=== PATIENT | female | born 2005 | race Caucasian/White ===

== ENCOUNTER 2023-08-25 10:35 | Outpatient (OUT) | payer MEDICAID, SELFPAY ==
--- NOTE | 2023-08-25 10:49 | MM_ITS ---
Patient Name: HOA AGRCIA MR#: [id number] : 2005 Exam Date: 08/25/2023 Ordering Doctor: DR Jignesh Ivy . RADIOLOGY REPORT PROCEDURE: MM TOMOSYNTHESIS DIAGNOSTIC BI, 08/25/2023, 11:40 US BREAST LT COMPLETE, 08/25/2023, 11:00 COMPARISON: None. INDICATIONS: Left Breast Mass N63.20 Calculator Name NCI Breast Cancer Risk Assessment Tool 5 Year Breast Cancer Risk Not Reported. Lifetime Breast Cancer Risk Not Reported. Personal Breast Cancer No Personal Ovarian Cancer No Treatments None Family Cancers None LOCATION: [facility] BREAST COMPOSITION: Extremely dense, which lowers the sensitivity of mammography. FINDINGS: DIAGNOSTIC CATEGORY 4--SUSPICIOUS FOR MALIGNANCY. FINDING DOES NOT EXHIBIT CLASSIC FINDINGS OF BREAST CANCER: RIGHT BREAST: Partially circumscribed nodule within upper-outer quadrant corresponding to patient's palpable lump. Evaluation is limited by dense parenchyma. Ultrasound evaluation demonstrates several heterogeneous hypoechoic well-circumscribed nodules at the 11 o'clock, 12 o'clock, and 1 o'clock positions; largest is at 12 o'clock, 1.4 x 1.2 x 1.0 cm. LEFT BREAST: Partially circumscribed nodules within upper-outer quadrant corresponding to patient's palpable lump. Evaluation is limited by dense parenchyma. Ultrasound evaluation demonstrates heterogeneous nodules which well-circumscribed and hypoechoic at the 12 o'clock position, largest is 2.0 x 2.0 x 1.2 cm. Patient's age and multiplicity of the similar appearing nodules favors benign etiology such as fibroadenomas. Ultrasound-guided tissue sampling could be performed of the largest nodule for confirmation if clinically indicated. RECOMMENDATIONS: ULTRASOUND-GUIDED CORE BIOPSY: LEFT BREAST PLEASE NOTE: A NORMAL MAMMOGRAM DOES NOT EXCLUDE THE POSSIBILITY OF BREAST CANCER. A CLINICALLY SUSPICIOUS PALPABLE LUMP SHOULD BE BIOPSIED. Dictated by: Pako Page M.D. on 08/25/2023 at 11:59 Approved by: Pako Page M.D. on 08/25/2023 at 12:27
== END 2023-08-25 10:36 | disposition home or self-care (01) ==
PROVIDERS: PCP Family Medicine; Visit Provider Obstetrics & Gynecology
DX: N63.21 Unspecified lump in the left breast, upper outer quadrant (principal); N63.25 Unspecified lump in the left breast, overlapping quadrants
CPT/HCPCS: 76641; 77066; G0279

== ENCOUNTER 2023-09-17 10:57 | Day surgery (SDC) | payer MEDICAID, SELFPAY ==
--- NOTE | 2023-09-17 11:06 | US_ITS ---
[address] [address] Patient Name: HOA GARCIA MRN: [id number] date: 2005 Sex: F Assigned Patient Location: US Current Patient Location: US Accession/Order Number: [id number] Exam Date: 09/17/2023 11:10 Report Date: 09/17/2023 12:39 At the request of: EDGARDO CASTREJON Procedure: US breast vac bx w/ clip LT EXAMINATION: US breast vac bx w/ clip LT HISTORY: Left Breast Mass COMPARISON: No relevant comparison available. TECHNIQUE: After obtaining informed consent, ultrasound-guided fine needle aspiration was performed in the usual sterile manner. FINDINGS: IMAGING: Ultrasound. BIOPSY NEEDLE: Mammotome vacuum assisted LOCATION: 12:00 left breast 2.2 cm oval mass SPECIMEN TYPE: 4 core samples. LOCAL ANESTHETIC: 2 cc 1% buffered lidocaine subcutaneous, 6 cc 1% buffered lidocaine with epinephrine deep COMPLICATIONS: None. LABORATORY: Prepared slide smears and washings for cell block evaluation. OTHER: Microclip marker successfully placed within the mass. PATHOLOGY: Pending. An addendum will be added when results are available. US/US breast vac bx w/ clip LT IMPRESSION: 1. Uneventful ultrasound guided left breast core biopsy 2. Pathology results are pending. Electronically authenticated by: TERRY TORRES Date: 09/17/2023 12:39
--- NOTE | 2023-09-17 11:07 | MM_ITS ---
Patient Name: HOA GARCIA MR#: [id number] : 2005 Exam Date: 09/17/2023 Ordering Doctor: DR Jignesh Ivy . This report includes an Addendum and supersedes previous reports for this exam. RADIOLOGY REPORT PROCEDURE: MM POST BIOPSY LT COMPARISON: MM TOMOSYNTHESIS DIAGNOSTIC BI, 08/25/2023. INDICATIONS: Left Breast Mass BREAST COMPOSITION: Extremely dense, which lowers the sensitivity of mammography. FINDINGS: BIOPSY MARKER: A metallic marker has been placed in the targeted location within the upper outer quadrant, mid left breast BREAST FINDINGS: Postprocedural subcutaneous air Dictated by: Gilberto Forrest MD on 09/17/2023 at 12:43 Approved by: Gilberto Forrest MD on 09/17/2023 at 12:43 ADDENDUM: FINDINGS: DIAGNOSTIC CATEGORY 2--BENIGN FINDING: Final diagnosis: Fibroepithelial lesion, favor cellular fibroadenoma. No further evaluation is required. RECOMMENDATIONS: CLINICAL EVALUATION. Dictated by: Gilberto Forrest MD on 10/23/2023 at 08:41 Approved by: Gilberto Forrest MD on 10/23/2023 at 08:42
[2023-09-17 11:10] VITALS: BP 111/73; PULSE 80; O2SAT 100
[2023-09-17] MEDS: LIDOCAINE HCL/EPINEPHRINE 10 ML, SODIUM BICARBONATE 1 MEQ INJ (11:45)
[2023-09-17] MEDS: LIDOCAINE HCL 10 ML, SODIUM BICARBONATE 1 MEQ INJ (11:45)
--- NOTE | 2023-09-17 14:18 | SUR.PREOP ---
09/11/23 Instructed pt on date, time, prep, and procedure.
== END 2023-09-17 12:10 | disposition home or self-care (01) ==
LOC: US 10:58
PROVIDERS: Radiology Diagnostic Radiology; PCP Family Medicine; Visit Provider Obstetrics & Gynecology
DX: D24.2 Benign neoplasm of left breast (principal)
CPT/HCPCS: 19083; 77065; 88305

== ENCOUNTER 2024-06-28 13:14 | Outpatient (OUT) | payer MEDICAID, SELFPAY ==
--- NOTE | 2024-06-28 | US_ITS ---
Patient Name: HOA GARCIA MR#: [id number] : 2005 Exam Date: 06/28/2024 Ordering Doctor: VIKTORIYA Walker . CORRECTION Corrected on: 07/01/2024; RADIOLOGY REPORT PROCEDURE: MM TOMOSYNTHESIS DIAGNOSTIC LT, 06/28/2024, 13:23 US BREAST LT LIMITED, 06/28/2024, 13:54 COMPARISON: MM POST BIOPSY LT, 09/17/2023. INDICATIONS: SCREENING Calculator Name NCI Breast Cancer Risk Assessment Tool 5 Year Breast Cancer Risk Not Reported. Lifetime Breast Cancer Risk Not Reported. Personal Breast Cancer No Personal Ovarian Cancer No Treatments None Family Cancers None LOCATION: [facility] BREAST COMPOSITION: The breasts are extremely dense, which lowers the sensitivity of mammography. FINDINGS: DIAGNOSTIC CATEGORY 4--SUSPICIOUS FOR MALIGNANCY. FINDING DOES NOT EXHIBIT CLASSIC FINDINGS OF BREAST CANCER: This exam includes additional mammographic views for implant evaluation and shows no visible implant abnormality. The left breast is stable in overall size however there are 2 focal mass lesions significantly increased in size from the prior exam measuring 5.4 x 4.7 x 5.1 cm along the 12 o'clock position of the left breast and 5.0 x 3.1 cm in the axillary tail seen on the MLO projection only. Ultrasound demonstrates 2 focal lesions at the 12 o'clock position measuring 4.8 x 2.2 x 3.0 cm and in a retroareolar location measuring 4.2 x 4.8 x 2.7 cm. Both lesions are oval in shape heterogeneous in echotexture with vascular flow. One of these lesions was biopsied in September of 2023. However given multiplicity and rapid increase in size, surgical consultation is recommended to exclude malignant transformation. RECOMMENDATIONS: SURGICAL BIOPSY: LEFT BREAST PLEASE NOTE: A NORMAL MAMMOGRAM DOES NOT EXCLUDE THE POSSIBILITY OF BREAST CANCER. A CLINICALLY SUSPICIOUS PALPABLE LUMP SHOULD BE BIOPSIED. Dictated by: Gilberto Forrest MD on 06/28/2024 at 14:14 Approved by: Gilberto Forrest MD on 06/28/2024 at 14:19 Dictated by: Gilberto Forrest MD on 07/01/2024 at 13:20 Approved by: Gilberto Forrest MD on 07/01/2024 at 13:20
== END 2024-06-28 13:15 | disposition home or self-care (01) ==
LOC: MAMMO 13:14
PROVIDERS: PCP Family Medicine; Visit Provider Physician Assistant
DX: N63.22 Unspecified lump in the left breast, upper inner quadrant (principal); N63.25 Unspecified lump in the left breast, overlapping quadrants; Z80.3 Family history of malignant neoplasm of breast
CPT/HCPCS: 76642; 77065; G0279

== ENCOUNTER 2024-07-19 13:10 | Outpatient (OUT) | payer MEDICAID, SELFPAY ==
--- NOTE | 2024-07-19 | US_ITS ---
Patient Name: HOA GARCIA MR#: [id number] : 2005 Exam Date: 07/19/2024 Ordering Doctor: VIKTORIYA Walker . RADIOLOGY REPORT PROCEDURE: MM TOMOSYNTHESIS DIAGNOSTIC RT, 07/19/2024, 13:12 US BREAST RT LIMITED, 07/19/2024, 13:33 COMPARISON: MM TOMOSYNTHESIS DIAGNOSTIC LT, 06/28/2024. MM POST BIOPSY LT, 09/17/2023. MM TOMOSYNTHESIS DIAGNOSTIC BI, 08/25/2023. INDICATIONS: Mass Of Right Breast N63.10; history of multiple fibroadenomas Calculator Name NCI Breast Cancer Risk Assessment Tool 5 Year Breast Cancer Risk Not Reported. Lifetime Breast Cancer Risk Not Reported. Personal Breast Cancer No Personal Ovarian Cancer No Treatments None Family Cancers None LOCATION: [facility] BREAST COMPOSITION: The breasts are extremely dense, which lowers the sensitivity of mammography. FINDINGS: DIAGNOSTIC CATEGORY 2--BENIGN FINDING: RIGHT BREAST: Very dense breast tissue with several partially circumscribed nodules scattered within the breast; 2 of these correspond to patient's palpable lumps as marked by the skin surface markers. Unremarkable breast implant. ULTRASOUND: Approximately 5 separate hypoechoic slightly heterogeneous well-circumscribed nodules scattered within the breast; a 1.8 cm mass at the 1 o'clock position corresponds to 1 of the patient's palpable lumps. A 2.6 cm bilobed mass versus 2 adjacent masses at the 10 o'clock position corresponds to the patient's other palpable area. All lesions are similar in appearance and would be compatible with history of fibroadenomas. Ultrasound-guided tissue sampling could be performed if needed. Otherwise continue with ongoing surgical evaluation. RECOMMENDATIONS: CLINICAL EVALUATION. SURGICAL CONSULTATION. PLEASE NOTE: A NORMAL MAMMOGRAM DOES NOT EXCLUDE THE POSSIBILITY OF BREAST CANCER. A CLINICALLY SUSPICIOUS PALPABLE LUMP SHOULD BE BIOPSIED. Dictated by: Pako Page M.D. on 07/19/2024 at 13:56 Approved by: Pako Page M.D. on 07/19/2024 at 14:06
--- NOTE | 2024-07-19 13:14 | MM_ITS ---
Patient Name: HOA GARCIA MR#: [id number] : 2005 Exam Date: 07/19/2024 Ordering Doctor: VIKTORIYA Walker . RADIOLOGY REPORT PROCEDURE: MM TOMOSYNTHESIS DIAGNOSTIC RT, 07/19/2024, 13:12 US BREAST RT LIMITED, 07/19/2024, 13:33 COMPARISON: MM TOMOSYNTHESIS DIAGNOSTIC LT, 06/28/2024. MM POST BIOPSY LT, 09/17/2023. MM TOMOSYNTHESIS DIAGNOSTIC BI, 08/25/2023. INDICATIONS: Mass Of Right Breast N63.10; history of multiple fibroadenomas Calculator Name NCI Breast Cancer Risk Assessment Tool 5 Year Breast Cancer Risk Not Reported. Lifetime Breast Cancer Risk Not Reported. Personal Breast Cancer No Personal Ovarian Cancer No Treatments None Family Cancers None LOCATION: [facility] BREAST COMPOSITION: The breasts are extremely dense, which lowers the sensitivity of mammography. FINDINGS: DIAGNOSTIC CATEGORY 2--BENIGN FINDING: RIGHT BREAST: Very dense breast tissue with several partially circumscribed nodules scattered within the breast; 2 of these correspond to patient's palpable lumps as marked by the skin surface markers. Unremarkable breast implant. ULTRASOUND: Approximately 5 separate hypoechoic slightly heterogeneous well-circumscribed nodules scattered within the breast; a 1.8 cm mass at the 1 o'clock position corresponds to 1 of the patient's palpable lumps. A 2.6 cm bilobed mass versus 2 adjacent masses at the 10 o'clock position corresponds to the patient's other palpable area. All lesions are similar in appearance and would be compatible with history of fibroadenomas. Ultrasound-guided tissue sampling could be performed if needed. Otherwise continue with ongoing surgical evaluation. RECOMMENDATIONS: CLINICAL EVALUATION. SURGICAL CONSULTATION. PLEASE NOTE: A NORMAL MAMMOGRAM DOES NOT EXCLUDE THE POSSIBILITY OF BREAST CANCER. A CLINICALLY SUSPICIOUS PALPABLE LUMP SHOULD BE BIOPSIED. Dictated by: Pako Page M.D. on 07/19/2024 at 13:56 Approved by: Pako Page M.D. on 07/19/2024 at 14:06
--- OUTSIDE RECORDS SUMMARY | 2024-07-19 13:22 | XMS_ITS | CCD ---
Author Organization [facility] Care Team Providers Care Plant Science Professor Name Role Phone Mana Mancuso Primary Care Provider [phone] Quoc Cordova Unavailable Sumaya Healy Primary Care Provider Ruddy Campbell Primary Care Provider Ruddy Campbell Primary Care Provider Sumaya Healy CNP Primary Care Provider RUDDY CAMPBELL Primary Care Unavailable JOSE J OLIVEROS Attending Unavailable CARLOS, DR RUDDY Morillo Primary Care Unavailable NARINDER NEWBERRY Attending Unavailable NARINDER NEWBERRY Consulting Unavailable NARINDER NEWBERRY Admitting Unavailable VIKTORIYA TANNER Consulting Unavailable CARLOS, DR RUDDY Morillo Primary Care Unavailable NARINDER NEWBERRY Admitting Unavailable NARINDER NEWBERRY Attending Unavailable Nereida Vuong Consulting Unavailable KARBRITTANY, DR KNAPP Attending Unavailable KARASIJosette, DR KNAPP Admitting Unavailable KARASIK, DR KNAPP Consulting Unavailable CARLOS, DR RUDDY Morillo Primary Care Unavailable KARASIJosette, DR KNAPP Attending Unavailable KARASIJosette, DR KNAPP Consulting Unavailable JOHNATHAN, DR KNAPP Admitting Unavailable CARLOS, DR RUDDY Morillo Primary Care Unavailable KARDARRENK, DR KNAPP Attending Unavailable KARBRITTANY, DR KNAPP Consulting Unavailable JOHNATHAN, DR KNAPP Admitting Unavailable CARLOS, DR RUDDY Morillo Primary Care Unavailable KARBRITTANY, DR KNAPP Attending Unavailable CARLOS, DR RUDDY Morillo Primary Care Unavailable KARASIK, DR KNAPP Consulting Unavailable KARDARRENK, DR KNAPP Admitting Unavailable DESAI, DR WHITE Consulting Unavailable TAMANNA, DR MUNOZ Admitting Unavailable CARLOS, DR RUDDY Morillo Primary Care Unavailable TAMANNA, DR MUNOZ Attending Unavailable KYAW Ortiz Attending Provider Unavail able Sophie Ortiz Attending Unavailable Sophie Ortiz Admitting Unavailable Sophie Ortiz Unavailable CAROLE TANNER Attending Unavailable Biju DO, Jignesh R Primary Care Provider BIJU, JIGNESH R Referring Unavailable BIJU, JIGNESH R Primary Care Unavailable BIJU, JIGNESH R Referring Unavailable BIJU, JIGNESH R Primary Care Unavailable BIJU, JIGNESH R Referring Unavailable BIJU, JIGNESH R Primary Care Unavailable BIJU, JIGNESH R Referring Unavailable BIJU, JIGNESH R Primary Care Unavailable BIJU, JIGNESH R Referring Unavailable BIJU, JIGNESH R Primary Care Unavailable BIJU, JIGNESH R Referring Unavailable BIJU, JIGNESH R Primary Care Unavailable BIJU, JIGNESH R Referring Unavailable BIJU, JIGNESH R Primary Care Unavailable ROBBI CHARLES Attending Unavailable BIJU, JIGNESH R Referring Unavailable BIJU, JIGNESH R Primary Care Unavailable Nilda Robledo Attending Unavailable Biju, Jignesh Referring Unavailable Medications Current Medications Medication Drug Class(es) Dates Sig (Normalized) Sig (Original) ascorbic acid 500 mg oral tablet (3 sources) Vitamin C Start: 06-19-2020 End: 08-14-2020 Ascorbic Acid 500 MG Oral Tablet 08/14/2020 Provider: Sumaya Healy PRACTICE ADMINISTRATOR {7 (ethinyl estradiol 0.025 MG / norgestimate 0.18 MG Oral Tablet) / 7 (ethinyl estradiol 0.025 MG / norgestimate 0.215 MG Oral Tablet) / 7 (ethinyl estradiol 0.025 MG / norgestimate 0.25 MG Oral Tablet) / 7 (inert ingredients 1 MG Oral Tablet) } Pack [Gos-Yz-Ahadvgaq 28 Day] (8 sources) Progestin, Estrogen Start: 05-23-2020 Pcx-Hn-Cnwpbdti 0.18/0.215/0.25 MG-25 MCG Oral Tablet 05/23/2020 Provider: Start: 08-27-2019 End: 12-02-2023 SPRINTEC, 28, 0.25-35 mg-mcg per tablet take 1 tablet by shankar th once daily norgestimate-ethinyl estradiol (SPRINTEC 28) 0.25-35 MG-MCG per tablet Take 1 tablet by mouth daily 0 Active Completed/Discontinued Medications Medication Drug Class(es) Dates Sig (Normalized) Sig (Original) amoxicillin 500 mg oral capsule (5 sources) Penicillin-class Antibacterial Start: 05-23-2020 End: 05-29-2020 Amoxicillin 500 MG Oral Capsule 05/23/2020 - 05/29/2020 Provider: ferrous sulfate 325 mg oral tablet (7 sources) Start: 06-19-2020 End: 03-01-2021 Ferrous Sulfate 325 (65 Fe) MG Oral Tablet 08/14/2020 - 11/23/2020 Provider: Sumaya Healy PRACTICE ADMINISTRATOR Problems Active Problems Problem Classification Problem Date Documented Date Episodic/Chronic Bacterial infection; unspecified site (4 sources) Chlamydial infection, unspecified; Translations: [CHLAMYDIAL INFECTION UNSPECIFIED] Onset: 01-07-2022 Episodic Genitourinary symptoms and ill-defined conditions (1 source) Dysuria Episodic Malaise and fatigue (2 sources) Fatigue; Translations: [Fatigue] Onset: 06-08-2020 Episodic Nonmalignant breast conditions (1 source) Unspecified lump in unspecified breast; Translations: [Unspecified lump in unspecified breast] Onset: 07-13-2024 Episodic Other and unspecified benign neoplasm (1 source) Fibroadenoma of left breast; Translations: [Benign neoplasm of left breast] 12-02-2023 Episodic Other and unspecified benign neoplasm (2 sources) Benign neoplasm of left breast; Translations: [Benign neoplasm of left breast] Onset: 12-02-2023 Episodic Other and unspecified benign neoplasm (1 source) Benign neoplasm of right breast; Translations: [Benign neoplasm of right breast] Onset: 07-13-2024 Episodic Other connective tissue disease (3 sources) Pain in left upper arm; Translations: [PAIN IN LEFT UPPER ARM] Onset: 01-20-2022 Episodic Other connective tissue disease (1 source) Pain in left arm; Translations: [PAIN IN LEFT ARM] Onset: 01-21-2022 Episodic Other connective tissue disease (1 source) Myalgia, unspecified site; Translations: [MYALGIA UNSPECIFIED SITE] Onset: 01-21-2022 Episodic Other female genital disorders (5 sources) Other specified noninflammatory disorders of vagina; Translations: [OTH SPEC NONINFLAMMATORY D/O VAGINA] Onset: 08-01-2021 Episodic Other upper respiratory infections (1 source) Viral upper respiratory tract infection; Translations: [Acute upper respiratory infection, unspecified] Episodic Otitis media and related conditions (2 sources) Perforation of left tympanic membrane; Translations: [Perforated eardrum, left] Onset: 07-13-2020 07-13-2020 Residual codes; unclassified (6 sources) Body mass index (BMI) pediatric, 5th percentile to less than 85th percentile for age; Translations: [Assessment of Bmi Percentile = 5% To < 85% For Age Z68.52] Onset: 05-23-2020 Episodic Residual codes; unclassified (2 sources) High risk heterosexual behavior; Translations: [High risk heterosexual behavior] Onset: 11-24-2022 Episodic Residual codes; unclassified (1 source) Pain, unspecified; Translations: [Pain, unspecified] Onset: 11-11-2023 Episodic Unclassified (1 source) CONTACT W/AND (SUSP) EXPOS COVID-19; Translations: [CONTACT W/AND (SUSP) EXPOS COVID-19] Onset: 03-13-2021 Unclassified (1 source) Breast Mass Onset: 12-02-2023 Past or Other Problems Problem Classification Problem Date Documented Da te Episodic/Chronic Conditions associated with dizziness or vertigo (1 source) Dizziness and giddiness; Translations: [DIZZINESS AND GIDDINESS] Onset: 03-13-2021 Episodic Immunizations and screening for infectious disease (4 sources) Encounter for screening for infections with a predominantly sexual mode of transmission; Translations: [ENC SCREEN INFECTIONS SEXL TRANSMS] Onset: 07-24-2021 Episodic Nausea and vomiting (1 source) Nausea with vomiting, unspecified; Translations: [NAUSEA WITH VOMITING UNSPECIFIED] Onset: 03-13-2021 Episodic Other gastrointestinal disorders (4 sources) Diarrhea, unspecified; Translations: [DIARRHEA UNSPECIFIED] Onset: 03-10-2021 Episodic Other skin disorders (3 sources) Rash and other nonspecific skin eruption; Translations: [RASH OTH NONSPECIFIC SKIN ERUPTION] Onset: 08-11-2021 Episodic Other upper respiratory disease (5 sources) Bleeding from nose; Translations: [Epistaxis] Onset: 06-11-2020 Episodic Otitis media and related conditions (1 source) Perforation of left tympanic membrane; Translations: [Unspecified perforation of tympanic membrane, left ear] Onset: 07-13-2020 07-13-2020 Episodic Skin and subcutaneous tissue infections (1 source) Impetigo, unspecified; Translations: [IMPETIGO UNSPECIFIED] Onset: 08-13-2021 Episodic Superficial injury; contusion (3 sources) Contusion of face; Translations: [Contusion of other part of head, initial encounter] Onset: 07-13-2020 07-13-2020 Episodic Results Test Name Value Interpretation Reference Range Facility Plastic Surgery Visit Report on 07-05-2024 Plastic Surgery Visit Report [facility] Plastic Reconstructive Surgery [address], [address] [place] [address] OFFICE VISIT Date of Service: 07/05/24 MR#: [id number] Acct: [id number] Name: HOA GARCIA Rep #: [id number] : 2005 Provider: Dr. Nilda vera MD Age/Sex: 19/F Location: [facility] Status: Signed Intake Vital Signs 07/05/24 14:04 Height 5 ft 3 in Weight: 126 lb BMI 22.3 BP 116/73 Blood Pressure Location Rt brachial Position Sitting Respiration 18 Pulse 62 Pulse Source Monitor Temp 97.7 F L Temp Source Oral Pulse Oximetry (%) 95 Oxygen Delivery Method room air Intake Visit Reasons: LUMP ON L BREAST Chief Complaint: lump on L breast Allergies No Known Allergies Allergy (Verified 07/05/24 14:04) Medications ???Medication ???Instructions ???Recorded ???Confirmed ???Type NK 07/05/24 07/05/24 History Nurse's Note: 2 lumps on L breast, 1 lump on right breast. [facility] Medical History (Updated 07/05/24 @ 15:[address] Nilda Robledo MD) Breast tumor Surgical History (Updated 07/05/24 @ 14:01 by Sara Avalos) History of breast implant History of breast lump removal Family History (Updated 07/05/24 @ 14:08 by Sara Avalos) Aunt Breast cancer Grandmother Breast cancer Father Alcoholism Mother Alcoholism Grandfather Alcoholism Grandmother Alcoholism Social History (Updated 07/05/24 @ 14:07 by Sara Avalos) Smoking Status: Never smoker alcohol intake: current substance use type: does not use additional social history: no ibuprofen or asa, no vaping, no edibles, no marijuana HPI LUMP ON L BREAST Details: Hoa is a 19-year-old female patient who presents for evaluation of several breast masses. She had a breast mass on the right side biopsied several years ago which was consistent with a fibroadenoma. She has masses on her left side which have been there for quite a while but have increased in size. An ultrasound and mammogram done on 06/28/2024 demonstrates 2 focal masses on the left side measuring 5.4 cm in the 12 o'clock position and 5.0 cm in the axillary tail. She states that she has deve loped several of these masses over the last few years. She states that she had had a removal on the right side in the past and was disappointed in the resulting scar on her upper right breast. She does not want to return to the surgeon. Several months ago, she flew to [facility] to have breast augmentation done by Dr. Heladio Rosado ( the highest rated plastic surgeon for breast augmentation ). She states she has bilateral silicone implants in place. She states that he had offered to remove 1 of these masses at that time and she declined. ROS General General: Yes good health; No fatigue, fever(s) or weight loss HENMT HENMT: No rhinitis, sore throat/mouth sore, nasal congestion, contacts or glaucoma Endo Endocrine: No thyroid disease, polydipsia, heat intolerance, cold intolerance, hepatitis or excessive urine Skin Skin: No Bleeding, bruising, changing moles or suspicious lesion Musc Musculoskeletal: No joint pain, joint stiffness, muscle weakness, back pain, osteoarthritis or Muscle aches/ myalgia Neuro Neurological: No headache(s), No lightheadedness and No numbness Cardio Cardiovascular: No chest pain, pacemaker, fatigue or shortness of breat with exertion Psych Psychiatric: No depression, claustrophobia or anxiety Resp Respiratory: No spitting up, shortness of breath, sleep apnea, asthma, emphysema, TB, Cough or Smoker Gastro Gastrointestinal: No diarrhea, constipation, blood in stool, nausea, vomiting or abdominal bloating Maurice Hematologic: No anemia, No bleeding and No abnormal bleeding Genitourinary: No urinary frequency, blood in urine or incontinence Exam Details Patient with evidence of bilateral breast augmentation through axillary incisions. She states the implants are submuscular. She has a palpable mass at the 12 o'clock position on the left breast which is elongated. She has a smaller palpable mass on the right side as well. I reviewed with the patient that a scar in the upper breast especially in light of new breast implants, can widen over time. The presence of the breast implants makes any attempts at needle biopsy riskier for disrupting the implant. She has confidence in the plastic surgeon in [place] that she sought out for her breast surgery. I suggested she follow-up with him especially since he placed the implants and can address any issues with the implants at the time of breast surgery. 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 Normal [facility] Chlamydia/GC/Trich NAAon Chlamydia Trachomotis, ABBE Negative Normal Negative [facility] Comment on above: Performed By: #### G CCHLAMTRI #### [facility] , Neisseria Gonorrhoeae, ABBE Negative Normal Negative [facility] Comment on above: Performed By: #### G CCHLAMTRI #### [facility] , Trichomonas ABBE Negative Normal Negative [facility] Comment on above: Result Comment: Perf ormed at: =G - [facility] [address] [id number] Diamond Setter: Rubi Wynne MD, Phone: [phone] PERFORMED BY: [facility] [address] [place] [address] PATHOLOGIST NAVIGATION TEACHER CHARLES WOLFE M.D. Performed By: #### G CCHLAMTRI #### [facility] , Chlamydia/GC/Trich ABBE Negative [employer] Other Urinalysis - AUTOMATEDon Appearance (U) clear Brain [employer] Other Bilirubin Ql (U) Negative [employer] Other Color (U) yellow [employer] Other Glucose Ql (U) Negative [employer] Other Hemoglobin Ql (U) Negative [employer] Other Ketones Ql (U) Negative [employer] Other Leukocyte esterase Test strip Ql (U) Negative [employer] Other Nitrite Ql (U) Negative [employer] Other pH (U) 7.0 [pH] [employer] Other Protein Ql (U) 30 [employer] Other Specific gravity (U) [Rel density] 1.030 [employer] Other Urobilinogen (U) [Mass/Vol] 1.0 mg/dL [employer] Other Urinalysis - AUTOMATED [employer] Other CHLAMYDIA/GONOCOCCUS ABBE (SW AB/URINE/PAPon 01-20-2022 Chlamydia trachomatis, ABBE Negative Normal Negative [facility] Comment on above: Performed By: #### C T/NGNA #### [facility] [address] [place] [address] Dr. Argenis Vega Neisseria gonorrhoeae, ABBE Negative Normal Negative [facility] Comment on above: Performed By: #### C T/NGNA #### [facility] [address] [place] [address] Dr. Argenis Vega VAGINITIS/VAGINOSIS DNA PROB Bairon 01-20-2022 Zeenat species Negative Normal Negative [facility] Comment on above: Performed By: #### V AGINT #### [facility] [address] [place] [address] Dr. Argenis Vega Gardnerella vaginalis Negative Normal Negative [facility] Comment on above: Performed By: #### V AGINT #### [facility] [address] [place] [address] Dr. Argenis Vega Trichomonas vaginalis Negative Normal Negative [facility] Comment on above: Performed By: #### V AGINT #### [facility] [address] [place] [address] Dr. Argenis Vega XR HUMERUS LT MIN 2Von 01-20 XR HUMERUS LT MIN 2V LEFT HUMERUS X-RAY 2 VIEWS HISTORY: Pain. COMPARISON: None. FINDINGS: AP and lateral views of the humerus are normal. No fracture is seen and the soft tissues are unremarkable. IMPRESSION: Normal humerus. Electronically authenticated by: NEREIDA VUONG Date: 2022-01-20 19:27 Normal [facility] CHLAMYDIA/GONOCOCCUS ABBE (SW AB/URINE/PAPon 01-10-2022 Chlamydia trachomatis, ABBE Negative Normal Negative [facility] Comment on above: Performed By: #### C T/NGNA #### [facility] [address] [place] [address] Dr. Argenis Vega Neisseria gonorrhoeae, ABBE Negative Normal Negative [facility] Comment on above: Performed By: #### C T/NGNA #### [facility] [address] [place] [address] Dr. Argenis Vega VAGINITIS/VAGINOSIS DNA PROB Bairon 01-09-2022 Zeenat species Negative Normal Negative [facility] Comment on above: Performed By: #### V AGINT #### [facility] [address] [place] [address] Dr. Argenis Vega Gardnerella vaginalis Negative Normal Negative [facility] Comment on above: Performed By: #### V AGINT #### [facility] [address] [place] [address] Dr. Argenis Vega Trichomonas vaginalis Negative Normal Negative [facility] Comment on above: Performed By: #### V AGINT #### [facility] [address] [place] [address] Dr. Argenis Vega CHLAMYDIA/GONOCOCCUS ABBE (SW AB/URINE/PAPon 12-12-2021 Chlamydia trachomatis, ABBE Positive Abnormal Negative [facility] Comment on above: Result Comment: . Performed By: #### C T/NGNA #### [facility] [address] [address] [address] Argenis Vega Neisseria gonorrhoeae, ABBE Negative Normal Negative [facility] Comment on above: Performed By: #### C T/NGNA #### [facility] [address] [address] [address] Argenis Vega VAGINITIS/VAGINOSIS DNA PROB Bairon 12-12-2021 Zeenat species Negative Normal Negative [facility] Comment on above: Performed By: #### C T/NGNA #### [facility] [address] [address] [address] Argenis Vega Gardnerella vaginalis Positive Abnormal Negative [facility] Comment on above: Performed By: #### C T/NGNA #### [facility] [address] [address] [address] Argenis Vega Trichomonas vaginalis Negative Normal Negative [facility] Comment on above: Performed By: #### C T/NGNA #### [facility] [address] [place] [address] Dr. Argenis Vega COVID-19, Rapidon 09-17-2021 SARS-CoV-2 (COVID-19) RNA ABBE+probe Ql (Unsp spec) Not detected Not Detected [facility] Comment on above: Rapid NAAT: The specimen is NEGATIVE for SARS-CoV-2, the novel coronavirus associated with COVID-19. The ID NOW COVID-19 assay is designed to detect the virus that causes COVID-19 in patients with signs and symptoms of infection who are suspected of COVID-19. An individual without symptoms of COVID-19 and who is not shedding SARS-CoV-2 virus would expect to have a negative (not detected) result in this assay. Negative results should be treated as presumptive and, if inconsistent with clinical signs and symptoms or necessary for patient management, should be tested with an alternative molecular assay. Negative results do not preclude SARS-CoV-2 infection and should not be used as the sole basis for patient management decisions. Fact sheet for Healthcare Providers: https://www.fda.gov/media/361635/download Fact sheet for Patients: https://www.fda.gov/media/529259/download Methodology: Isothermal Nucleic Acid Amplification Specimen Description .NASOPHARYNGEAL SWAB Allan Shankar dao [facility] [id number] 09-17-2021 SARS-CoV-2 (COVID-19) RNA ABBE+probe Ql (Unsp spec) Not detected Normal [facility] Comment on above: Result Comment: Rapid NAAT: The specimen is NEGATIVE for SARS-CoV-2, the novel coronavirus associated with COVID-19. The ID NOW COVID-19 assay is designed to detect the virus that causes COVID-19 in patients with signs and symptoms of infection who are suspected of COVID-19. An individual without symptoms of COVID-19 and who is not shedding SARS-CoV-2 virus would expect to have a negative (not detected) result in this assay. Negative results should be treated as presumptive and, if inconsistent with clinical signs and symptoms or necessary for patient management, should be tested with an alternative molecular assay. Negative results do not preclude SARS-CoV-2 infection and should not be used as the sole basis for patient management decisions. Fact sheet for Healthcare Providers: https://www.fda.gov/media/509081/download Fact sheet for Patients: https://www.fda.gov/media/257744/download Methodology: Isothermal Nucleic Acid Amplification Performed By: #### C OVRB #### [facility] [address] [place], [place] [id number] Diamond Setter: Gilberto Watts MD CHLAMYDIA/GONOCOCCUS ABBE (SW AB/URINE/PAPon 09-07-2021 Chlamydia trachomatis, ABBE Negative Normal Negative [facility] Comment on above: Performed By: #### C T/NGNA #### [facility] [address] [place] [address] Dr. Argenis Vega Neisseria gonorrhoeae, ABBE Negative Normal Negative [facility] Comment on above: Performed By: #### C T/NGNA #### [facility] [address] [place] [address] Dr. Argenis Vega VAGINITIS/VAGINOSIS DNA PROB Bairon 09-05-2021 Zeenat species Negative Normal Negative [facility] Comment on above: Performed By: #### C T/NGNA #### [facility] [address] [place] [address] Dr. Argenis Vega Gardnerella vaginalis Positive Abnormal Negative [facility] Comment on above: Performed By: #### C T/NGNA #### [facility] [address] [place] [address] Dr. Argenis Vega Trichomonas vaginalis Negative Normal Negative [facility] Comment on above: Performed By: #### C T/NGNA #### [facility] [address] [place] [address] Dr. Argenis Veag CHLAMYDIA/GONOCOCCUS ABBE ( AB/URINE/PAPon 07-27-2021 Chlamydia trachomatis, ABBE Positive Abnormal Negative [facility] Comment on above: Result Comment: . Performed By: #### C T/NGNA #### [facility] [address] [place] [address] Dr. Argenis Vega Neisseria gonorrhoeae, ABBE Negative Normal Negative [facility] Comment on above: Performed By: #### C T/NGNA #### [facility] [address] [place] [address] Dr. Argenis Vega VAGINITIS/VAGINOSIS DNA PROB Bairon 07-26-2021 Zeenat species Negative Normal Negative [facility] Comment on above: Performed By: #### V AGINT #### [facility] [address] [place] [address] Dr. Argenis Vega Gardnerella vaginalis Positive Abnormal Negative [facility] Comment on above: Performed By: #### V AGINT #### [facility] [address] [place] [address] Dr. Argenis Vega Trichomonas vaginalis Negative Normal Negative [facility] Comment on above: Performed By: #### V AGINT #### [facility] [address] [place] [address] Dr. Argenis Vega CBC AUTO DIFFon 03-10-2021 BASO # 0.0 103/ul Normal 0.0-0.1 [facility] Comment on above: Performed By: #### C BC #### [facility] [address] [place] [address] Morro Stephanie Basophils/100 WBC (Bld) 0.2 % Normal 0.2-2.0 [facility] Comment on above: Performed By: #### C BC #### [facility] [address] [place] [address] Morro Stephanie EO # 0.1 103/ul Normal 0.0-0.7 [facility] Comment on above: Performed By: #### C BC #### [facility] [address] [place] [address] Mor[place] Stephanie Eosinophils/100 WBC (Bld) 2.0 % Normal 0.9-7.0 [facility] Comment on above: Performed By: #### C BC #### [facility] [address] [place] [address] Morro Stephanie Erythrocyte distribution width (RBC) [Ratio] 14.7 % Normal 11.0-15.0 [facility] Comment on above: Performed By: #### C BC #### [facility] [address] [place] [address] Morro Stephanie Hematocrit (Bld) [Volume fraction] 40.0 % Normal 36.0-48.0 [facility] Comment on above: Performed By: #### C BC #### [facility] [address] [place] [address] Morro Stephanie Hemoglobin (Bld) [Mass/Vol] 12.9 g/dL Normal 12.0-16.0 [facility] Comment on above: Performed By: #### C BC #### [facility] [address] [place] [address] Morro Stephanie IG # 0.02 10e3/ul Normal 0.00-0.03 [facility] Comment on above: Performed By: #### C BC #### [facility] [address] [place] [address] Morro Stephanie IG % 0.4 % Normal 0.0-0.5 [facility] Comment on above: Performed By: #### C BC #### [facility] [address] [place] [address] Morro Stephanie LYMPH # 1.0 103/ul Critically low 1.2-3.8 The [facility] Comment on above: Performed By: #### C BC #### [facility] [address] [place], [place] [id number] Morro Stephanie Lymphocytes/100 WBC (Bld) 18.7 % Critically low 20.5-60.0 [facility] Comment on above: Performed By: #### C BC #### [facility] [address] [place], [place] [id number] Morro Brown MANUAL DIFF REQ NO Normal [facility] Comment on above: Performed By: #### C BC #### [facility] [address] [place] [address] Morro Stephanie MCH (RBC) [Entitic mass] 25.1 pg Critically low 26.7-34.0 [facility] Comment on above: Performed By: #### C BC #### [facility] [address] [place] [address] Morro Arguetaen MCHC (RBC) [Mass/Vol] 32.3 g/dL Normal 29.9-35.2 [facility] Comment on above: Performed By: #### C BC #### [facility] [address] [place] [address] Morro Arguetaen MCV (RBC) [Entitic vol] 78.0 fL Critically low 79.1-95.6 [facility] Comment on above: Performed By: #### C BC #### [facility] [address] [place] [address] Morro Stephanie MONO #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 this document.
== END 2024-07-19 13:11 | disposition home or self-care (01) ==
LOC: MAMMO 13:10
PROVIDERS: PCP Family Medicine; Visit Provider Physician Assistant
DX: N63.10 Unspecified lump in the right breast, unspecified quadrant (principal)
CPT/HCPCS: 76642; 77065; G0279